=== PATIENT | female | born 1975 | race Caucasian/White ===

== ENCOUNTER 2016-08-07 14:48 | Emergency (ER) | payer OTHER ==
[2016-08-07 15:44] LABS: BLOOD UREA NITROGEN 15 mg/dL (7-18); CALCIUM 8.9 mg/dL (8.7-10.7); CARBON DIOXIDE 24 mmol/L (21-32); CREATININE 0.8 mg/dL (0.6-1.3); GLUCOSE,RANDOM 103 mg/dL (70-99); POTASSIUM 4.3 mmol/L (3.5-5.1); SODIUM 142 mmol/L (136-145)
== END 2016-08-07 17:20 | disposition home or self-care (01) ==
LOC: ER 14:48
PROVIDERS: General Practice
DX: I83.90 Asymptomatic varicose veins of unspecified lower extremity (principal); I73.9 Peripheral vascular disease, unspecified; R20.0 Anesthesia of skin; F41.9 Anxiety disorder, unspecified; K21.9 Gastro-esophageal reflux disease without esophagitis; R25.1 Tremor, unspecified; Z79.899 Other long term (current) drug therapy
CPT/HCPCS: 36415; 80048; 85379; 99284; 99284-25